=== PATIENT | male | born 1990 | race Caucasian/White ===

== ENCOUNTER 2018-08-08 05:41 | Emergency (ER) | payer OTHER ==
[~2018-08-08] VITALS: Ht 170.2 cm; Wt 122.5 kg
[~2018-08-08 05:41] MED LIST: IBUPROFEN 800800 M1 PO; NOHOMEMEDICATIONS; ZPAK PO
[2018-08-08] MEDS ORDERED: VENTOLIN HFA 1818 GM INH (06:35)
[2018-08-08] MEDS ORDERED: MEDROLDOSEPACK PO (06:35)
[2018-08-08] MEDS ORDERED: AZITHROMYCIN 2250 MG PO (06:35)
[2018-08-08 06:48] VITALS: BP 154/89
== END 2018-08-08 06:52 | disposition home or self-care (01) ==
LOC: M.ERS 05:41
DX: J45.909 Unspecified asthma, uncomplicated (principal); J06.9 Acute upper respiratory infection, unspecified; Z90.49 Acquired absence of other specified parts of digestive tract

== ENCOUNTER 2018-12-16 12:53 | Emergency (ER) | payer OTHER ==
[~2018-12-16] VITALS: Ht 170.2 cm; Wt 122.5 kg
[~2018-12-16 12:53] MED LIST changes: +AZITHROMYCIN 2250 MG PO; +MEDROLDOSEPACK PO; +VENTOLIN HFA 1818 GM INH
[2018-12-16 13:19] LABS: URINE BILIRUBIN NEGATIVE (Negative); URINE BLOOD TRACE (Negative); URINE CLARITY CLEAR; URINE COLOR YELLOW; URINE GLUCOSE-RANDOM NEGATIVE (Negative); URINE KETONES NEGATIVE (Negative); URINE LEUKOCYTES-REFLEX NEGATIVE (Negative); URINE NITRITE-REFLEX NEGATIVE (Negative); URINE PROTEIN 2+ (Negative); URINE SPECIFIC GRAVITY >= 1.030 (1.005-1.030); URINE UROBILINOGEN 0.2 E.U./dl (0.2-1.0)
[2018-12-16 13:28] LABS: BACTERIA-REFLEX None Seen /HPF (None Seen); CASTS None Seen /LPF (None Seen); CRYSTALS None Seen /LPF (None Seen); SQUAMOUS NONE SEEN /LPF (0-3); URINE RBC 0-2 Rare /HPF (0-2); URINE WBC-REFLEX 0-5 Rare /HPF (0-5)
[2018-12-16] MEDS ORDERED: NYSTATIN-TRIAMC15 GM TOP (13:56)
[2018-12-16] MEDS ORDERED: BACTRIM DS TAB1 EACH PO (13:57)
[2018-12-16 14:03] VITALS: BP 138/88
== END 2018-12-16 14:03 | disposition home or self-care (01) ==
LOC: M.ERS 12:53
PROVIDERS: Nurse Practitioner Family
DX: N48.1 Balanitis (principal); Z20.2 Contact with and (suspected) exposure to infections with a predominantly sexual mode of transmission; J45.909 Unspecified asthma, uncomplicated; Z90.49 Acquired absence of other specified parts of digestive tract

== ENCOUNTER 2020-01-19 21:01 | Emergency (ER) | payer OTHER ==
[~2020-01-19] VITALS: Ht 167.6 cm; Wt 108.9 kg
[~2020-01-19 21:01] MED LIST changes: +BACTRIM DS TAB1 EACH PO; +NYSTATIN-TRIAMC15 GM TOP
[2020-01-19 22:41] VITALS: BP 156/102
== END 2020-01-19 22:41 | disposition home or self-care (01) ==
LOC: M.ERS 21:01
DX: S60.221A Contusion of right hand, initial encounter (principal); J45.909 Unspecified asthma, uncomplicated; Z90.49 Acquired absence of other specified parts of digestive tract; W01.0XXA Fall on same level from slipping, tripping and stumbling without subsequent striking against object, initial encounter; Y93.89 Activity, other specified; Y92.89 Other specified places as the place of occurrence of the external cause; Y99.8 Other external cause status